=== PATIENT | female | born 1970 | race Caucasian/White ===

== ENCOUNTER 2018-01-30 10:10 | Inpatient (IN) | payer OTHER ==
--- NOTE | 2018-01-22 11:35 | HP ---
Admitting History and Physical - Primary Care Physician PCP: Charles Rios - Admission Chief Complaint: Right breast cancer History of Present Illness: 47 year old Ashkenazi descent premenapsual female who underwent routine screening mammogram 11/2017, showing highly suspicious microclcifications extending over 6 cm and US was negative. Right stereotactic core biopsy at 3:00 region showed pleomorphic LCIS ER/MA+.Breast MRI showed localized right breast disease. Breast gene panel was negative full panel pending. 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
[2018-01-30] MEDS ORDERED: BUPIVACAINE HCL/PF 0.25% (2.5MG/ML) 10 ML VIAL ONE ×2 (13:10→13:12)
--- NOTE | 2018-01-30 13:21 | HP ---
History & Physical Update - History History: No Change - Physical Physical: No Change - Assessment Assessment: No Change - Plan Plan: No Change
[2018-01-30] MEDS ORDERED: MIDAZOLAM HCL 2 MG/2 ML SINGLE DOSE VIAL ONE ×2 (13:39)
[2018-01-30] MEDS ORDERED: ceFAZolin SODIUM 1 GM VIAL IVPB ONE (13:57)
[2018-01-30] MEDS ORDERED: PROPOFOL 20 ML ONE (13:57)
[2018-01-30] MEDS ORDERED: ROCURONIUM BROMIDE 50 MG/5 ML VIAL ONE ×2 (13:57→15:40)
[2018-01-30] MEDS ORDERED: GENTAMICIN SO4 80 MG/2 ML VIAL ONE ×2 (13:58→16:16)
[2018-01-30] MEDS ORDERED: BUPIVACAINE LIPOSOME/PF (EXPAREL) 266 MG/20 ML VIAL NR ONE (14:15)
[2018-01-30] MEDS ORDERED: VANCOMYCIN 1,000 MG VIAL (RESTRICTED TO ID ONLY) ONE (16:16)
[2018-01-30] MEDS ORDERED: ceFAZolin SODIUM 1 GM VIAL ONE ×2 (16:16→20:54)
[2018-01-30] MEDS ORDERED: DESFLURANE GAS 240 ML BOTTLE IH ONE (16:28)
[2018-01-30] MEDS ORDERED: ONDANSETRON 4 MG/2 ML VIAL IVPUSH PRN ×2 (16:56→18:00)
[2018-01-30] MEDS ORDERED: ACETAMINOPHEN 325 MG TABLET (FP) PO PRN (16:56)
[2018-01-30] MEDS ORDERED: oxyCODONE HCL 5 MG TABLET PO PRN ×3 (16:56→18:00)
[2018-01-30] MEDS ORDERED: DEXTROSE 5%-0.45% SALINE 1,000 ML IV SCH (17:00)
[2018-01-30] MEDS ORDERED: diazePAM 5 MG TABLET PO PRN (17:00)
[2018-01-30] MEDS ORDERED: NEOSTIGMINE METHYLSULFATE 0.5 MG/ML - 10 ML MDV ONE (17:29)
[2018-01-30] MEDS ORDERED: GLYCOPYRROLATE 0.2 MG/1 ML VIAL ONE (17:29)
[2018-01-30] MEDS ORDERED: BENZOIN TINCTURE SWABSTICK TP ONE (17:47)
[2018-01-30] MEDS ORDERED: LACTATED RINGERS SOLUTION 1,000 ML IV SCH (18:00)
[2018-01-30] MEDS ORDERED: PROMETHAZINE HCL 25 MG/1 ML VIAL IVPB PRN (18:00)
[2018-01-30] MEDS ORDERED: PROMETHAZINE HCL 25 MG/1 ML VIAL ONE (18:25)
[2018-01-30] MEDS ORDERED: ONDANSETRON 4 MG/2 ML VIAL ONE (19:32)
[2018-01-30] MEDS: CEFAZOLIN 1 GM in DEXTROSE 5%-WATER - 50 ML IVPB SCH (21:38)
[2018-01-30] MEDS ORDERED: ZOLPIDEM TARTRATE 5 MG TABLET PO PRN (22:00)
--- NOTE | 2018-01-31 00:33 | OP ---
DATE OF OPERATION: 01/30/2018 PREOPERATIVE DIAGNOSIS: Right breast pleomorphic lobular carcinoma in situ. POSTOPERATIVE DIAGNOSIS: Right breast pleomorphic lobular carcinoma in situ. PROCEDURE: Bilateral total nipple-sparing mastectomy through an inframammary approach and bilateral direct implant reconstruction with AlloDerm. PRIMARY SURGEON: Melo Valderrama MD for the reconstruction. Primary surgeon for the mastectomy is Denise Dacosta MD. WATER RESOURCE CONSULTANT: MERARI Barton; retail assistant store manager for the bilateral direct implant reconstruction AlloDerm is Denise Koenig MD COMPLICATIONS: None. INDICATIONS: Briefly, the patient is a 47-year-old, G3, P3, premenopausal, white female, with no family history of breast or ovarian cancer. The patient has Ashkenazi Gnosticism, Pakistani decent. She is found to have pleomorphic suspicious calcifications in the right breast medial aspect on screening mammography in November of 2017. Examination was negative. She underwent stereotactic core biopsy of an area in the right breast 3 o'clock region, 5 cm from the nipple, which showed pleomorphic LCIS with central necrosis, which was ER-IL strongly positive. MRI performed in December 2017 just showed the localized lesion in the right breast 3 o'clock aspect measuring 1.3 x 0.7 x 1.9 cm. Due to the extent of the calcifications and her small breast size, mastectomy was recommended. The patient chose to have bilateral mastectomies and nipple-sparing technique was offered given the distance of the lesion from the nipple. She underwent genetic testing and did have a VUS and MUTYH gene. The patient was brought in for the surgery and sentinel lymph node biopsy on the right side on January 30, 2018. DESCRIPTION OF PROCEDURE: She was brought in through [facility] and underwent the lymphoscintigraphy in Nuclear Medicine and was brought to the holding area. In the holding area, site verification was made and informed consent was obtained. She was marked preoperatively by the plastic surgeon. She was brought into the operating room and laid on the OR table in the supine position. Venodynes were placed on the lower extremities prior to induction. She underwent general endotracheal anesthesia. She received 1 g of Ancef prior to the incision. Timeout was then performed. The patient was prepped and draped in the usual fashion. Bilateral inframammary incisions were marked out about 8 cm in length in the inframammary folds in both breasts. The right breast mastectomy was first performed with the sentinel lymph node biopsy. Incision was made just below the hair-bearing area of the right axilla and dissection was undertaken and 2 hot nodes were easily found in the level 1 and level 2 regions of the right axilla. The first sentinel lymph node had a 10-second gamma count of 3729 and the second sentinel lymph node had a 10-second gamma count of 4602. Two other nonsentinel nodes did get removed with the sentinel nodes. The sentinel nodes were sent for frozen section and came back negative, so no further nodes were removed. Background count after removal of these 2 nodes was 281. At this point, the right mastectomy was performed through an 8-cm inframammary incision. The skin edges were everted and the breast tissue was retracted inferiorly using Alta clamps. The skin flap was raised using electrocautery superior to the level of the clavicle, medially to the level of the sternum, laterally to the level of the latissimus, and inferiorly below the level of the inframammary fold. The breast was taken off of the pectoralis major muscle from inferomedial to superolateral, completely removed intact. It was oriented with a long lateral and short superior suture and weighed to allow for appropriate cosmetic result. A retroareolar biopsy was taken underneath the right nipple areolar complex, sent for frozen section, and came back negative. The nipple was spared. A separate anterior margin was taken on the medial flap where the cancer was located and sent to pathology as a separate anterior margin with the suture margin and biopsy cavity site. Hemostasis was achieved and the wound was copiously irrigated with warm, sterile saline. At this point, the left breast prophylactic mastectomy was performed. Separate instruments were used. Gloves and gowns were changed. The left mastectomy was performed again through the inframammary incision, about 8 cm in length. The skin edges were everted and the breast was retracted inferiorly using Sohail clamps. The skin flap was raised using the electrocautery, raising the skin flaps superiorly to the level of the clavicle, medially to the level of the sternum, laterally to the level of the latissimus, and inferiorly below the level of the inframammary fold. The breast was taken off of the pectoralis major muscle from inferomedial to superolateral and completely removed intact. It was oriented with a long lateral and short superior suture and again weighed to allow for appropriate cosmetic result. Skin flaps were trimmed for good cosmetic result. A retroareolar biopsy was taken underneath the left nipple areolar complex and sent for frozen section and came back negative. The left nipple was spared. Hemostasis was achieved. The wound was copiously irrigated with warm sterile saline. Both breasts were sent down to Pathology in formalin for formal pathology with the breasts oriented with the long lateral and short superior suture. The right breast was actually sent for a specimen radiograph to confirm removal of all of the calcifications and the previous clip placed. At this point, the patient's procedure was taken over by Dr. Valderrama and Dr. Koenig who will perform bilateral direct implant reconstructions, placing silicone implants in the subpectoral location using AlloDerm to allow for the direct implant reconstruction. Two drains will be placed around each implant and brought out through separate stab incisions on the lateral skin flaps and secured in place using 3-0 nylon suture. All incisions will be closed by Plastic Surgery. They will perform an Exparel block prior to closure for postoperative pain relief. The patient was doing well after the bilateral mastectomies and all sponge and needle counts are correct at this point in the case. Estimated blood loss is about 125 mL. She was hemodynamically stable throughout. The patient will be recovered in the postanesthesia care unit after the reconstruction and admitted postoperatively for pain management and wound management. DENISE DACOSTA M.D. [id number]
[2018-01-31] MEDS ORDERED: ceFAZolin SODIUM 1 GM VIAL ONE (01:14)
[2018-01-31] MEDS ORDERED: DEXTROSE 5%-WATER - 50 ML IVPB ONE (01:14)
[2018-01-31] MEDS: ACETAMINOPHEN 325 MG TABLET (FP) PO PRN ×2 (02:02→06:18)
[2018-01-31] MEDS: CEFAZOLIN 1 GM in DEXTROSE 5%-WATER - 50 ML IVPB SCH (02:11)
[2018-01-31 06:34] VITALS: BP 98/56; PULSE 80; TEMP 98.5
[2018-01-31 07:49] LABS: HEMATOCRIT 30.9 % (32.4-45.2); HEMOGLOBIN 10.2 GM/dL (10.7-15.3); MCH 29.2 pg (25.7-33.7); MEAN CELL VOLUME 88.4 fl (80-96); MEAN PLT VOLUME 7.9 fl (7.5-11.1); PLATELET COUNT 108 K/MM3 (134-434); RBC 3.49 M/mm3 (3.60-5.2); RDW 13.4 % (11.6-15.6); WHITE BLOOD COUNT 10.4 K/mm3 (4.0-10.0)
--- NOTE | 2018-01-31 07:52 | PN ---
Progress Note, Physician Chief Complaint: Right breast cancer with pleomorphic LCIS History of Present Illness: The patient was found to have an abnormal mammography with suspicious right breast calcifications and stereotactic core biopsy shoed pleomorphic LCIS. due to extent of the calcifications mastectomy was recommended and she chose a prophylactic left breast mastectomy as well - Current Medication List Current Medications: Active Medications Acetaminophen (Tylenol -) 650 mg PO Q4H PRN PRN Reason: FEVER Last Admin: 01/30/18 22:05 Dose: 650 mg Acetaminophen (Tylenol -) 650 mg PO Q4H PRN PRN Reason: PAIN LEVEL 1-3 Last Admin: 01/31/18 06:18 Dose: 650 mg Diazepam (Valium -) 5 mg PO Q8H PRN PRN Reason: WITHDRAWAL(CONT SUBST) Fentanyl (Sublimaze Injection -) 50 mcg IVPUSH [id number] PRN PRN Reason: PAIN-PACU ORDER X 4 DOSES ONLY Heparin Sodium (Porcine) (Heparin -) 5,000 unit SQ BID NIKOLAY Cefazolin Sodium 1 gm/ (Dextrose) 50 mls @ 100 mls/hr IVPB Q6H-IV NIKOLAY Stop: 02/06/18 20:59 Last Admin: 01/31/18 02:11 Dose: 100 mls/hr Dextrose/Sodium Chloride (D5-1/2ns -) 1,000 mls @ 100 mls/hr IV [facility] Last Admin: 01/30/18 21:00 Dose: 0 mls Lactated Ringer's (Lactated Ringers Solution) 1,000 mls @ 75 mls/hr IV [facility] Last Admin: 01/30/18 18:20 Dose: 1,000 mls Ondansetron HCl (Zofran Injection) 4 mg IVPUSH Q6H PRN PRN Reason: NAUSEA AND/OR VOMITING Ondansetron HCl (Zofran Injection) 4 mg IVPUSH Q6H PRN PRN Reason: NAUSEA AND/OR VOMITING Oxycodone HCl (Roxicodone -) 5 mg PO Q4H PRN PRN Reason: PAIN LEVEL 4-6 Oxycodone HCl (Roxicodone -) 10 mg PO Q4H PRN PRN Reason: PAIN LEVEL 7-10 Promethazine HCl (Phenergan Injection -) 12.5 mg IVPB Q6H PRN PRN Reason: NAUSEA-FOR RESCUE AFTER 15 MIN Last Admin: 01/30/18 18:25 Dose: 12.5 mg Valacyclovir HCl (Valtrex -) 500 mg PO DAILY NIKOLAY Zolpidem Tartrate (Ambien -) 5 mg PO HS PRN PRN Reason: Insomnia - Objective Vital Signs: Vital Signs Temperature 98.5 F 01/31/18 05:00 Pulse Rate 80 01/31/18 05:00 Respiratory Rate 20 01/31/18 05:00 Blood Pressure 98/56 L 01/31/18 05:00 O2 Sat by Pulse Oximetry (%) 100 01/30/18 21:30 Constitutional: Yes: Well Nourished, No Distress, Moderate Distress Eyes: Yes: WNL HENT: Yes: Atraumatic, Normocephalic Neck: Yes: WNL Cardiovascular: Yes: Regular Rate and Rhythm Respiratory: Yes: Regular, CTA Bilaterally Gastrointestinal: Yes: Normal Bowel Sounds, Soft ...Rectal Exam: Yes: Deferred Genitourinary: Yes: WNL Breast(s): Yes: Other (Bilateral mastectomy incisions clean, dry, and intact. 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 She is afebrile with stable vital signs. Wounds clean, dry, and intact. Drains functioning well. She has good pain control and is stable for discharge this AM. She is to follow up in 1 week with Drs. Blanca Valderrama. No heavy lifting or exercise. record EVGENY outputs daily. Code(s): D05.01 - LOBULAR CARCINOMA IN SITU OF RIGHT BREAST
--- NOTE | 2018-01-31 07:58 | DS ---
Physical Examination Vital Signs: Vital Signs Temperature 98.5 F 01/31/18 05:00 Pulse Rate 80 01/31/18 05:00 Respiratory Rate 20 01/31/18 05:00 Blood Pressure 98/56 L 01/31/18 05:00 O2 Sat by Pulse Oximetry (%) 100 01/30/18 21:30 Constitutional: Yes: Well Nourished, No Distress, Calm Eyes: Yes: WNL HENT: Yes: Atraumatic, Normocephalic Neck: Yes: WNL Cardiovascular: Yes: Regular Rate and Rhythm Respiratory: Yes: Regular, CTA Bilaterally Gastrointestinal: Yes: Normal Bowel Sounds, Soft ...Rectal Exam: Yes: Deferred Renal/: Yes: WNL Breast(s): Yes: Other (Mastectomy wounds clean, dry, and intact. Drains functioning well. Skin flaps warm and viable.) Musculoskeletal: Yes: WNL Extremities: Yes: WNL Integumentary: Yes: WNL Wound/Incision: Yes: Clean/Dry, Well Approximated Neurological: Yes: Alert, Oriented ...Motor Strength: WNL Labs: CBC, BMP 01/31/18 07:25 Discharge Summary Reason For Visit: RT BREAST NEOPLASM right breast cancer with pleomorphic LCIS Procedures: Principal: Bilateral nipple sparing mastectomies with direct to implant reconstructions with alloderm Hospital Course: The patient was admitted postoperatively for pain control and wound management. She was doing well POD#2 and had good pain control with stable vitals and was stable for discharge. Her wounds were clean, dry, and intact with warm viable skin flaps. She is to follow up with Drs. Rios and Lavelle in 1 week. Condition: Good - Instructions Diet, Activity, Other Instructions: Regular diet. No heavy lifting or exercise. record drain outputs daily. Keep compressive bra in place day/night. No bath/shower until drains removed. Referrals: Charles Rios MD [Staff Physician] - Melo Valderrama MD [Staff Physician] - Disposition: HOME - Home Medications Comprehensive Discharge Medication List: Ambulatory Orders Valacyclovir HCl [Valtrex] 500 mg PO DAILY 01/29/18
[2018-01-31] MEDS ORDERED: HEPARIN NA (PORCINE) 5,000 UNITS/ML 1ML VIAL SQ SCH ×2 (08:00)
--- NOTE | 2018-01-31 09:10 | OP ---
DATE OF OPERATION: 01/30/2018 PREOPERATIVE DIAGNOSES: 1. Right breast cancer. 2. Acquired absence of bilateral breasts. POSTOPERATIVE DIAGNOSES: 1. Right breast cancer. 2. Acquired absence of bilateral breasts. PROCEDURES: 1. Bilateral [id number] 2. Bilateral AlloDerm acellular dermal matrix graft to anterior chest alaniz. ATTENDING SURGEON: Melo Tatum MD COSURGEON: Charles Koenig MD ANESTHESIA: General endotracheal. ESTIMATED BLOOD LOSS: 100 mL. SPECIMENS: As per surgical oncology. DRAINS: 1. No. 15 round Ralph drain x2 to right breast. 2. No. 15 round Ralph drain x2 to left breast. COMPLICATIONS: None. CONDITION: Stable to recovery room, extubated. INDICATIONS: The patient is a 47-year-old female who has a recently diagnosed lobular carcinoma in situ of the right breast. Given the extent of her calcification, she has been recommended for a right nipple-sparing mastectomy with a sentinel lymph node biopsy. The patient has elected to undergo a prophylactic left nipple-sparing mastectomy as well. She was evaluated preoperatively for immediate breast reconstruction, and she is most appropriately a candidate for implant-based reconstruction. The patient understands that the decision to perform direct to implant insertion versus immediate tissue energy director insertion will depend on the quality of the overlying skin flaps after the mastectomies are completed. The risks, benefits, and alternatives of the reconstruction were discussed with the patient in detail, and all questions were answered. The risks include but are not limited to bleeding, infection, pain, need for revision or further surgery, partial or complete nipple loss, partial or complete skin loss, damage to neighboring structures including nerves, arteries, veins, and tendons. The patient understands these risks and has elected to proceed with surgery. The procedure is as follows. DESCRIPTION OF PROCEDURE: After appropriate identification and marking of patient in the preoperative holding area, the patient was transported to the operating room and placed supine on the table where noninvasive anesthesia monitors were applied. Intravenous access was established. General anesthesia was administered, and the patient was intubated without difficulty. SCD boots were applied to bilateral extremities. Intravenous antibiotics were then given. The patient's bilateral breasts as well as right axilla were then prepped and draped in the usual sterile fashion. At this point, Dr. Rios from surgical oncology proceeded to perform bilateral nipple-sparing mastectomies through inframammary fold approaches, as well as a right sentinel lymph node biopsy. These procedures will all be dictated separately. Upon completion of the mastectomies, Dr. Cuenca and Lindsey began the reconstruction, working independently as cosurgeons with separate instrument setups. Attention was first turned towards the right breast where the mastectomy pocket was copiously irrigated with warm saline and all loose fat debris was removed. At this point hemostasis was achieved of the right mastectomy pocket. Once this was completed, the pectoralis major muscle was identified. Electrocautery was used to develop a subpectoral plane beginning at the lateral pectoral border. This was continued up to the second rib superiorly, out to the sternal fibers medially, and out to the anterior axillary line laterally. At this point, the origins of the pectoralis major muscle were released off of the ribs up to the level of the 8 o'clock position on the left breast. Once this was completed, a piece of AlloDerm medium contour, perforated, thick acellular dermal matrix was brought into the field. It was bathed in a saline bath for 5 minutes and then placed into antibiotic irrigation. It was then brought up to the left breast pocket where it was placed dermis side up. A 3-0 Vicryl suture was then used to secure the superomedial edge of the AlloDerm to the released inferomedial edge of the pectoralis major muscle. This 3-0 Vicryl was then continued in a simple running fashion from the mediolateral direction in order to secure the superior edge of the AlloDerm to the released inferior edge of the pectoralis major muscle. This was continued along the lateral border of the pectoralis major muscle for the entire length of the acellular dermal matrix. The 3-0 Vicryl suture was then continued from a superior to inferior direction in order to secure the lateral edge of the AlloDerm down to the chest wall and recreate the lateral breast border. At the level of the inframammary fold, this 3-0 Vicryl suture was temporarily stopped. At this point, a second 3-0 Vicryl suture was again started at the superomedial edge of the AlloDerm. It was continued in a simple running fashion from a superior to inferior direction along the medial breast border in order to secure the AlloDerm down to the chest wall and recreate the medial breast pocket. At the level of the inframammary fold, this 3-0 Vicryl suture was temporarily stopped. At this point the left breast pocket was copiously irrigated with triple antibiotic irrigation as well as dilute Betadine solution. Gloves at this point were changed. The left mastectomy specimen was noted to weigh 200.4 g. Therefore, a Sientra [id number], 325-mL moderate plus profile smooth, round silicone implant was opened. It was bathed in triple antibiotic irrigation and then was placed underneath the pectoralis major/AlloDerm pocket. Once the implant was in proper position, the AlloDerm was re-draped over it and the 3-0 Vicryl sutures were continued from both medial and lateral directions in simple running fashion in order to secure the inferior edge of the AlloDerm down to the chest wall at the inframammary fold. At the breast meridian, the 3-0 Vicryl sutures were tied to each other. The mastectomy skin flaps were then re-draped, and there was noted to be viability to all zones of the mastectomy skin flaps as well as the nipple-areolar complex, and there was noted to be good dermal bleeding from the leading edge of the mastectomy skin flap. At this point, 2 No. 15 round Ralph drains were placed in the left breast pocket and brought out through separate stab incisions laterally and secured to the skin with 3-0 nylon sutures. The leading edge of the mastectomy skin flap was then trimmed, and then a field block was performed of the left breast pocket and chest wall using a local anesthetic solution consisting of 20 mL of Exparel mixed with 30 mL of 0.25% Marcaine in 80 mL of normal saline. A total of 50 mL was injected as a field block into the left breast pocket. Once this was completed, the left breast inframammary fold closure was performed in layers using a 3-0 PDS in a buried deep dermal fashion, followed by a 3-0 Monocryl in a running subcuticular fashion. Once the left breast inframammary fold closure line was completed, attention was turned towards the right breast, where exact same procedure was performed, and therefore only one side will be dictated. Once the bilateral breast incisions were closed, Mastisol and Steri-Strips were applied to the inframammary fold closure lines. The drain sites were dressed with Biopatches and Tegaderms. The right sentinel lymph node biopsy site was dressed with Mastisol and Steri-Strips as well. The patient at this point was placed into a soft surgical bra, with care taken to ensure adequate padding with fluffs and ABD pads. The patient at this point was slowly awakened and was extubated without incident and then was transported to recovery room in stable condition. MELO TATUM M.D. [id number]
[2018-01-31] MEDS ORDERED: valACYclovir HCL 500 MG TABLET (FP) PO SCH (10:00)
--- NOTE | 2018-02-02 09:21 | OP ---
DATE OF OPERATION: 01/30/2018 SURGEON: Denise Koenig MD CO-SURGEON: Melo Valderrama MD POSTOPERATIVE DIAGNOSES: Bilateral acquired chest wall deformity status post bilateral mastectomy (611.89). PROCEDURE: 1. Right immediate breast reconstruction utilizing immediate insertion of silicone breast implant and AlloDerm reconstruction. 2. Left immediate breast reconstruction utilizing immediate insertion of silicone breast implant and AlloDerm reconstruction. 3. Intravenous injection of indocyanine green dye and intraoperative diagnostic evaluation of non-coronary intraoperative fluorescein vascular angiography x 2. ANESTHESIA: General. OPERATIVE PROCEDURE IN DETAIL: The patient was taken to the operating room. After induction of general anesthesia in the supine position, both arms were extended and padded. Venodyne boots were placed. The entire chest wall was painted with ChloraPrep solution over its entire extent, and sterile drapes were placed in the usual fashion. The markings, which had been made in the standing position preoperatively, were reoutlined with the patient's knowledge. Time-out procedure was performed. Attention was turned by Dr. Rios to the mastectomies. Bilateral inframammary incisions were made and Dr. Rios performed mastectomies. This will be dictated under separate cover. Upon completion of the mastectomies, the wounds were copiously irrigated and attention was turned to the right breast. A subpectoral dissection was begun on the right breast, superiorly from the second rib, medially to the sternal fibers, and down to the inframammary fold, elevating the pectoralis major muscle from its insertion. At this point, a contour perforated piece of AlloDerm was brought into the field and sutured superiorly along the pectoralis major muscle after rehydration. This was carried along the lateral mammary fold and down the side of the breast reconstruction. At this point, a Sientra style 107/325 mL moderate plus profile implant was chosen. The left breast tissue removed was 200 g, and the right breast approximately 250 g. This implant was placed and then sutured with 3-0 Vicryl suture continued along the inframammary fold, completely covering the implant itself. The exact same procedure was carried out symmetrically on the opposite breast, also placing a contour perforated medium sized AlloDerm implant in the same subpectoral pocket. She had Sientra style 107/325 mL moderate plus profile implants placed bilaterally. Good symmetry was seen in the sitting position. After the implants were in place, the patient was injected with 10 mL of Isocyanide green dye and the Spy imaging system was brought into the field. The skin flowed to the right and left breasts and the nipple areolar complex, and the entire skin flaps were evaluated and seen to be viable with good blood flow. Two 15 Ralph drains four in total were placed on both sides through separate stab wounds laterally. The Smart Infuser pump catheter was inserted medially and into the subpectoral position. Both wounds were closed symmetrically using 3-0 PDS suture on the deep tissue, 3-0 in a deep dermal fashion, and 4-0 in a subcuticular fashion. Both wounds were dressed sterilely with Mastisol and Steri-Strips with a surgical bra and a compression strap. The patient tolerated the procedure well. She was awakened, extubated and transferred to the recovery room in satisfactory condition. The librarian assistant was present during the entire portion of the operation and closure. DENISE KOENIG M.D. [id number] MTDD
--- NOTE | 2018-02-05 10:45 | PATH ---
Surgical Pathology Report Patient Name: KRISTI VALENZUELA [facility]. Rec. #: [id number] /Age/Gender: 1970 (Age: 47) / F Account: [id number] Location: [address] [place] [address] Taken: 01/30/2018 Received: 01/30/2018 Reported: 02/05/2018 Physicians: Charles Rios M.D. Specimen(s) Received A: SENTINEL LYMPH NODE #1 B: SENTINEL LYMPH NODE #2 RIGHT BREAST C: LEFT BREAST RETRO AREOLA BX D: RIGHT BREAST RETRO AREOLA BX E: NON SENTINEL LYMPH NODE RIGHT BREAST #1 F: NON SENTINEL LYMPH NODE RIGHT BREAST #2 G: LEFT BREAST TISSUE H: RIGHT BREAST TISSUE I: RIGHT BREAST ANTERIOR MARGIN Clinical History History of pleomorphic LCIS Intraoperative Consult Diagnosis A. 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 B. Trinity lymph node #2, excision: No definitive malignancy identified on roofing sales representative sections (0/1). C. Left breast, retroareolar, biopsy: Benign breast tissue. D. Right breast, retroareolar, biopsy: Benign breast tissue. Dr. Adler, 01/30/18. Final Diagnosis A. SENTINEL LYMPH NODE #1, EXCISION (FS): ONE LYMPH NODE, NEGATIVE FOR METASTATIC CARCINOMA ON H&E STAINED SECTIONS AND CYTOKERATIN (AE1/3) IMMUNOSTAIN PERFORMED AT [facility] (0/1). B. SENTINEL LYMPH NODE #2, RIGHT BREAST, EXCISION (FS): ONE LYMPH NODE, NEGATIVE FOR METASTATIC CARCINOMA ON H&E STAINED SECTIONS AND CYTOKERATIN (AE1/3) IMMUNOSTAIN PERFORMED AT [facility] (0/1). C. LEFT BREAST RETROAREOLA, BIOPSY (FS): BENIGN BREAST TISSUE. D. RIGHT BREAST RETROAREOLA, BIOPSY (FS): BENIGN BREAST TISSUE. E. NON-SENTINEL LYMPH NODE #1, RIGHT BREAST, EXCISION: ONE LYMPH NODE, NEGATIVE FOR METASTATIC CARCINOMA ON H&E STAINED SECTIONS AND CYTOKERATIN (AE1/3) IMMUNOSTAIN PERFORMED AT [facility] (0/1). F. NON-SENTINEL LYMPH NODE #2, RIGHT BREAST, EXCISION: ONE LYMPH NODE, NEGATIVE FOR METASTATIC CARCINOMA ON H&E STAINED SECTIONS AND CYTOKERATIN (AE1/3) IMMUNOSTAIN PERFORMED AT [facility] (0/1). G. LEFT BREAST TISSUE, NIPPLE-SPARING MASTECTOMY: BENIGN BREAST TISSUE SHOWING FOCAL USUAL DUCTAL HYPERPLASIA, DILATED DUCTS, STROMAL FIBROSIS, AND MICROCALCIFICATIONS. H. RIGHT BREAST TISSUE, NIPPLE-SPARING MASTECTOMY: INVASIVE LOBULAR CARCINOMA, PLEOMORPHIC TYPE, MODERATELY DIFFERENTIATED (TUBULE SCORE 3/3, NUCLEAR GRADE: 3/3, MITOTIC SCORE: 1/3, TOTAL SCORE 7/9, MIRIAM GRADE 2), MEASURING 1.3 CM IN GREATEST DIMENSION, MICROSCOPICALLY. FLORID LOBULAR CARCINOMA IN SITU (LCIS), PLEOMORPHIC TYPE, WITH ASSOCIATED NECROSIS AND CALCIFICATIONS. SURGICAL MARGINS ARE UNINVOLVED BY INVASIVE CARCINOMA. THE INVASIVE CARCINOMA IS AT LESS THAN 1MM FROM THE CLOSEST MARGIN (ANTERIOR MARGIN). SURGICAL MARGIN (ANTERIOR) IS INVOLVED BY LCIS PLEOMORPHIC TYPE. SEE SPECIMEN I FOR FINAL ANTERIOR MARGIN. NO SKIN OR NIPPLE PRESENT. REACTIVE CHANGES AT PRIOR BIOPSY SITE IDENTIFIED. LYMPHOVASCULAR INVASION NOT IDENTIFIED. PERINEURAL INVASION NOT IDENTIFIED. PATHOLOGIC STAGE (pTNM): pT1c pN0 SEE INVASIVE CARCINOMA CASE SUMMARY BELOW. I. RIGHT BREAST ANTERIOR MARGIN, EXCISION: BENIGN BREAST TISSUE, NEGATIVE FOR CARCINOMA. Comments Breast Invasive Carcinoma: Surgical Pathology Case Summary (Based on AJCC TNM 8 th edition) Procedure _x_ Total mastectomy (including nipple-sparing and skin-sparing mastectomy) Specimen Laterality _x_ Right Tumor Size _x_ Greatest dimension of largest invasive focus >1 mm (specify exact measurement) (millimeters): 13 mm Histologic Type _x_ Invasive lobular carcinoma, pleomorphic type Histologic Grade ([place] Histologic Score) Glandular (Acinar)/Tubular Differentiation _x_ Score 3 (<10% of tumor area forming glandular/tubular structures) Nuclear Pleomorphism _x_ Score 3 Mitotic Rate _x_ Score 1 Overall Grade _x_ Grade 2 (scores of 6 or 7) Tumor Focality _x_ Single focus of invasive carcinoma Ductal Carcinoma In Situ (DCIS) _x_ No DCIS in specimen Margins Invasive Carcinoma Margins _x_ Uninvolved by invasive carcinoma Distance from closest margin (millimeters): <1mm Closest margin: anterior, also see specimen I for final anterior margin LCIS margins _x_ Involved by LCIS, pleomorphic type. Margin: Anterior margin Also see specimen I for final anterior margin DCIS Margins _x_ No DCIS in specimen Regional Lymph Nodes Number of Lymph Nodes with Macrometastases (>2 mm): 0 Number of Lymph Nodes with Micrometastases (>0.2 mm to 2 mm and/or >200 cells): 0 Number of Lymph Nodes with Isolated Tumor Cells (=0.2 mm and =200 cells): 0 Number of Lymph Nodes Examined: 4 Number of Trinity Nodes Examined: 2 Treatment Effect _x_ No known presurgical therapy Lymphovascular Invasion _x_ Not identified Pathologic Stage Classification (pTNM, AJCC 8th Edition) Primary Tumor (Invasive Carcinoma) (pT) _x_ pT1c: Tumor >10 mm but =20 mm in greatest dimension Regional Lymph Nodes (pN) Modifier (required only if applicable) _x_ (sn): Trinity node(s) evaluated. If 6 or more nodes (sentinel or nonsentinel) are removed, this modifier should not be used. Category (pN) __x_ pN0: No regional lymph node metastasis identified or ITCs only Biomarker Studies Results of ER and KY studies performed on this specimen (block# H1) at [facility] are as follows: ER (clone [id number] mouse monoclonal antibody by [employer]): 90% nuclear staining with moderate and strong intensity (Positive). KY (clone16 mouse monoclonal antibody by [employer]): 90% nuclear staining with strong intensity (Positive). Results of Her2 and Ki67 studies will be reported separately in an addendum. Comment: Immunohistochemical stain E-cadherin performed and interpreted at [facility] show the tumor cells to be negative in the invasive and in situ carcinoma, consistent with lobular phenotype. Positive and negative controls (internal if applicable) show appropriate results. Formalin fixation time is within current ASCO/CAP recommendations for ER, KY and Her2 testing. Cold ischemic time exceeds recommended guidelines. Negative results must be interpreted with caution as false negatives may occur. Electronically Signed Alayna Adler M.D. Addendum Reported: 02/07/2018 Addendum Diagnosis Biomarker Studies Results of Her2 (IHC) & Ki-67 studies performed on this specimen (block H1) at [place], [place] ([id number]) interpreted at [facility] are as follows: Her2 IHC (EP3 from [employer], formerly known as [id number], using [employer] Polymer Refine detection kit): 3+ (Positive) Ki-67: <15% (low proliferative index) Alayna Adler M.D. Gross Description A. Received fresh for immediate intraoperative consultation labeled "sentinel lymph node #1" is a pink-ortez nodular tissue measuring 0.9 x 0.6 x 0.5 centimeter. The specimen is bisected and entirely submitted for frozen section analysis as follows: FSA: One lymph node, Frozen section residue. B. Received fresh for immediate intraoperative consultation labeled "sentinel lymph node #2" is a pink-ortez nodular tissue measuring 2 x 1.2 x 0.5 centimeter. The specimen is bisected and entirely submitted for frozen section analysis as follows: FSA: One lymph node, Frozen section residue. C. Received fresh for immediate intraoperative consultation labeled "left breast retroareolar BX F/S" is a pink-ortez fibroadipose soft tissue measuring 0.7 x 0.3 x 0.3 cm. The specimen is submitted for frozen section analysis as follows: FSC: Frozen section residue. D. Received fresh for immediate intraoperative consultation labeled "right breast retroareolar BX F/S" is a pink-ortez fibroadipose soft tissue measuring 1.5 x 1.4 x 0.3 cm. The specimen is submitted for frozen section analysis as follows: FSD: Frozen section residue. E. Received in formalin labeled "non-sentinel lymph node right breast," is a 1.0 x 0.6 x 0.5 cm ortez lymph node. The specimen is bisected and entirely submitted in one cassette. F. Received in formalin labeled "non-sentinel lymph node #2," is a 0.8 x 0.4 x 0.3 cm ortez lymph node with attached fat. The specimen is submitted in toto in one cassette. G. Received in formalin, labeled "left breast tissue," is a 196 gram, 15.5 x 12.0 x 2.6 cm. left mastectomy specimen with a short suture marking the superior aspect and a long suture marking the lateral aspect of the specimen, per the surgeon. There is no skin or nipple present. The deep margin is inked black and the anterior soft tissue margin is inked blue. The specimen is serially sectioned from medial to lateral. Sectioning reveals abundant dense, white, focally firm fibrous. No definitive mass is identified. Radio/Tv Technician sections are submitted in 13 cassettes as follows: 1-3-upper outer quadrant; 4-5-lower outer quadrant; 6-8-upper inner quadrant; 9-11-lower inner quadrant; 12-anterior soft tissue margin; 13-deep margin. H. Received fresh on an [employer], labeled "right breast tissue," is a 189 gram, 14.0 x 11.5 x 2.8 cm. right mastectomy specimen with a short suture marking the superior aspect and a long suture marking the lateral aspect of the specimen, per the surgeon. There is no skin or nipple present. The deep margin is inked black and the anterior soft tissue margin is inked blue. The specimen is serially sectioned from lateral to medial. Sectioning reveals a 4.2 x 3.0 x 1.8 centimeter ill-defined focus of firm fibrous tissue is upper inner quadrant (UIQ), abutting the anterior soft tissue margin. The remaining breast parenchyma displays diffuse dense, white fibrous tissue. Radio/Tv Technician sections are submitted in 19 cassettes as follows: 1-2-one full face bisected section of UIQ mass (each with anterior soft tissue margin); 4-6-odifzwrwdf full face bisected section of UIQ mass (with anterior soft tissue margin and deep margin); 2-3-soqwdtvsli full face bisected section of UIQ mass (each with anterior soft tissue margin and deep margin); 3-7-fyegbwakfk sections of UIQ mass; 90-14-imcqgllsoz UIQ tissue; 12-13-lower inner quadrant; 14-15- upper outer quadrant; 16-17-lower outer quadrant; 18-anterior soft tissue margin; 19-deep margin. Time from tissue taken to place in formalin: Approximately 12 hours Total formalin fixation time: Approximately 12 hours. I. Received in formalin labeled "right breast anterior margin," is a 2.0 x 1.7 x 0.5 cm portion of fibroadipose tissue with a suture marking the biopsy cavity side, per the surgeon. The new margin is inked blue and the specimen is serially sectioned and entirely submitted in 3 cassettes. MLJONELLE/01/30/2018 wendy/01/30/2018
== END 2018-01-31 09:22 | disposition home or self-care (01) | DRG 583 ==
LOC: JSAMEDAYSX 10:10 → J6S 21:18
PROVIDERS: ADMIT Surgery Surgical Oncology; ATTEND Surgery Surgical Oncology
PROC: 0HTV0ZZ Resection of Bilateral Breast, Open Approach (ICD-10-PCS; principal; 2018-01-30 13:00)
PROC: 0HUV0JZ Supplement Bilateral Breast with Synthetic Substitute, Open Approach (ICD-10-PCS; 2018-01-30 13:00)
DX: D05.01 Lobular carcinoma in situ of right breast (principal)
CPT/HCPCS: 36415; 78195-TC; 84703; 85027; 88307-TC; 88331-TC; 94760; A9541